=== PATIENT | female | born 1970 | race Caucasian/White ===

== ENCOUNTER → 2017-10-27 14:32 | Outpatient (REF) | payer SELFPAY | LOC: OM 14:32 | PROVIDERS: PCP Family Medicine; Visit Provider Nurse Practitioner Family | DX: Z02.79 Encounter for issue of other medical certificate (principal) ==

== ENCOUNTER 2019-10-04 02:58 | Outpatient (CLI) | payer BC, SELFPAY ==
[2019-10-04 13:26] LABS: Abs Immature Grans 0.07 10^3/uL (0.0-0.06); HCT 40.3 % (36.0-46.0); HGB 13.3 g/dL (11.2-15.7); MCH 31.3 pg (27.0-33.0); MCV 94.8 fL (80-95); MPV 9.7 fL (8.0-11.0); Platelet Count 206 10^3/uL (130-400); RBC 4.25 10^6/uL (3.93-5.22); RDW 14.2 % (11.7-14.6); RDW-SD 49.4 fL
[2019-10-04 14:12] LABS: Absolute Neutrophil Count 1.97 10^3/uL (1.2-6.7); WBC 32.88 10^3/uL (4.4-10.8)
[2019-10-04 14:13] LABS: Absolute Lymphocyte Count 30.91 10^3/uL (1.2-3.4); Atypical Lymphocytes % 11
[2019-10-04 14:14] LABS: Diff Comment Manual Differential; RBC Morphology Normal
[2019-10-04 14:17] LABS: Bilirubin Negative (Negative); Blood Trace-intact (Negative); Clarity Clear (Clear); Glucose Negative (Negative); Ketones Negative (Negative); Leukocyte Esterase Negative (Negative); Nitrite Negative (Negative); Specific Gravity >= 1.030 (1.005-1.025); Urobilinogen 0.2 EU/dL (Up TO 0.2); pH 5.5 (5-8)
[2019-10-04 14:24] LABS: ALT 48 U/L (14-59); AST 72 U/L (15-37); Albumin 4.4 g/dL (3.4-5.0); Alkaline Phosphatase 72 U/L (46-116); Anion Gap 9.9 mmol/L (3-11); BUN 33 mg/dL (7-18); Bilirubin, Total 0.7 mg/dL (0.2-1.0); CO2 27.1 mmol/L (21.0-32.0); Calcium 9.6 mg/dL (8.5-10.1); Chloride 103 mmol/L (98-107); Glucose 89 mg/dL (74-106); Potassium 4.1 mmol/L (3.5-5.1); Sodium 140 mmol/L (136-145); TSH (W/Ref FT4) 1.99 uIU/mL (0.36-3.74); Total Protein 6.7 g/dL (6.4-8.2)
[2019-10-04 14:25] LABS: C-Reactive Protein < 0.05 mg/dL (0.0-0.3)
[2019-10-04 14:36] LABS: Bacteria Rare HPF (Negative); C & S Indicated? No; Casts Negative LPF (Negative); Crystals Negative HPF (Negative); Epithelial Cells Many HPF (Negative); Mucus Negative (Negative); RBC 0-2 HPF (0-2); WBC 0-2 HPF (0-5)
== END 2019-10-04 03:18 ==
PROVIDERS: PCP Family Medicine; Visit Provider Family Medicine
DX: R31.9 Hematuria, unspecified (principal); M94.8X9 Other specified disorders of cartilage, unspecified sites; N95.0 Postmenopausal bleeding
CPT/HCPCS: 36415; 80053; 81003; 81015; 84443; 85025; 86140

== ENCOUNTER 2019-10-11 01:20 | Outpatient (CLI) | payer BC, SELFPAY ==
--- NOTE | 2019-10-11 07:30 | DI.US_ITS ---
APPROVED REPORT EXAM: Comprehensive 2D, Doppler, and color-flow Echocardiogram Patient Location: Out-Patient Efficiency Manager: Jing Ochoa RDCS (AE) Indications: Miurmur Other Information Study Quality: Good Conclusion Left Ventricle : The left ventricle is normal size. The left ventricular systolic function is normal. The left ventricular ejection fraction is within the normal range. There is normal left ventricular wall thickness. There is normal LV segmental wall motion. LVEF is 60%. Right Ventricle : The right ventricle is normal size. The right ventricular systolic function is norm al. Atria : The left atrium size is normal. The right atrium size is normal. Valves: There are no hemodynamically significant valvular lesions. Great Vessels : The aortic root is normal in size. The ascending aorta is normal in size. Aortic arch is normal in caliber. IVC is normal in size and collapses >50% with inspiration. Please see remainder of study for further details. There is no prior study available for comparison. Wall motion Left Ventricle The left ventricle is normal size. The left ventricular systolic function is normal. The left ventric ular ejection fraction is within the normal range. There is normal left ventricular wall thickness. T here is normal LV segmental wall motion. There is no ventricular septal defect visualized. LVEF is 60 %. Right Ventricle The right ventricle is normal size. The right ventricular systolic function is normal. Atria The left atrium size is normal. The right atrium size is normal. The interatrial septum is intact wit h no evidence for an atrial septal defect. Aortic Valve Aortic valve is trileaflet. There is no aortic valvular stenosis. No aortic regurgitation is present. Mitral Valve The mitral valve is normal in structure. No evidence of mitral valve stenosis. Trace mitral regurgita tion. Tricuspid Valve The tricuspid valve is normal in structure. There is no tricuspid valve stenosis. Trace tricuspid reg urgitation. Pulmonic Valve The pulmonary valve is normal in structure. There is no pulmonic valvular stenosis. Trace pulmonic re gurgitation. Great Vessels The aortic root is normal in size. The ascending aorta is normal in size. Aortic arch is normal in ca liber. IVC is normal in size and collapses >50% with inspiration. Pericardium There is no pericardial effusion. 2D Dimensions IVSD d PLAX 0.80 cm F: 0.6-1.0 LV Vol A2C d MOD 110.8 mL LVPW d PLAX 0.80 cm F: 0.6 - 1.0 LV Vol A4C d MOD 116.6 mL LVID d PLAX 4.80 cm F: 3.8 - 5.2 LA vol/ BSA A2C s A-L 36.2 mL/m2 LVDs 3.00 cm F: 2.2 - 3.5 LA vol/ BSA A4C s A-L 31.3 mL/m2 Ao Root d 2.34 cm F: 2.7 - 3.3 LA Vol/ BSA Biplane s A-L 34.0 mL/m2 RA Area A4C 16.38 cm2 LA Area A4C s MOD 16.99 cm2 RA Vol/ BSA A4C s A-L 33.9 mL/m2 LA Area A2C s MOD 18.47 cm2 Ao Asc Diam d 2.81 cm F: 2.3 - 3.1 LV EF A4C MOD 61.5 % LV EF Teichholz 66.4 % LV EF A2C MOD 61.3 % LVEF (Green's) 61.20 % F: 54 - 74 LV EF Biplane MOD 61.2 % LV Volume 94.50 mL F: 46 - 106 SV 70.22 mL LV Volume Index 61.36 mL/m2 F: 29 - 61 SV Index 45.44 mL/m2 LV Vol Biplane MOD 114.7 mL FS 36.65 % M-Mode TAPSE 2.98 cm (M/F) >1.7 LV Diastology E/A Ratio 1.0 MV E Vmax 0.68 (0.4-1.3 m/s) MV A Vmax 0.65 (0.4-1.3 m/s) MV E/A Ratio 0.98 Aortic Valve LVOT Area 2.72 cm2 AoV Area Vmax 1.98 cm2 LVOT Vmax 1.26 m/s AoV Area/ BSA (Vmax) 1.28 cm2/m2 LVOT Mean Lavon. 0.74 m/s RADHA Mean Lavon. 1.77 cm2 LVOT Peak Grad 6.4 mmHg RADHA Mean Lavon. Index 1.15 cm2/m2 LVOT Mean Grad 2.7 mmHg LVOT VTI 0.280 m LVOT Diam s 1.85 cm AoV Vmax 1.73 m/s Velocity Ratio 0.72 AoV Mean Lavon. 1.14 m/s AoV Peak Grad 11.9 mmHg LVOT SV 76.17 mL AoV Mean Grad 5.8 mmHg AoV VTI 0.368 m AoV Area VTI 2.07 cm2 AoV Area/ BSA (VTI) 1.34 cm/m2 Mitral Valve MV DT 182 (160-240 msec) MV PHT 53 msec MV Area PHT 4.16 cm2 Pulmonary Valve PV Vmax 1.99 (0.5-1.5 m/s) RVOT Peak Gr. 2.70 mmHg PV Peak Grad 15.8 mmHg RVOT Mean Gr. 1.40 mmHg PV Mean Grad 8.1 mmHg RVOT VTI 0.215 m PV VTI 0.456 m RVOT Vmax 0.82 m/s Tricuspid Valve TR Peak Grad 18.5 mmHg TR Vmax 2.15 m/s RA Pressure 3.00 mmHg RVSP (TR) 21.5 mmHg
== END 2019-10-11 01:40 ==
PROVIDERS: PCP Family Medicine; Visit Provider Family Medicine
DX: R01.1 Cardiac murmur, unspecified (principal)
CPT/HCPCS: 93306

== ENCOUNTER 2019-10-15 01:51 | Outpatient (CLI) | payer BC, SELFPAY ==
--- NOTE | 2019-10-15 08:00 | DI.US_ITS ---
EXAM: US PELVIS TRANSVAGINAL CLINICAL HISTORY: POSTMENOPAUSAL BLEEDING,N95.0. TECHNIQUE: Transabdominal and transvaginal pelvic ultrasound was performed using standard protocol. COMPARISON: No exams were available for comparison FINDINGS: KIDNEYS: Kidneys are symmetric in size. No evidence of renal calculi. No evidence of hydronephrosis. No renal mass or cyst identified. UTERUS: Position: Anteverted. Size: 7.7 long by 3.5 AP by 5.6 transverse cm Endometrium: 0.2 cm. Normal for patient's menstrual status. Myometrium: Unremarkable. Cervix: Unremarkable. OVARIES: Right: 3.2 x 1.5 x 1.9 cm Cyst or mass: None. Left: 3.0 x 2.2 x 2.4 cm Cyst or mass: Simple avascular 2 x 1.8 x 2.1 cm cyst. DOPPLER: Color: Symmetric and uniform flow to both ovaries. No hyperemia. CUL-DE-SAC: Free fluid: None. Other: None. IMPRESSION: 1. Normal sonographic appearance of the kidneys. 2. Normal-appearing uterus with endometrial stripe within normal limits. 3. 2.1 cm simple left ovarian cyst. DATA REPOSITORY:
== END 2019-10-15 02:11 ==
PROVIDERS: PCP Family Medicine; Visit Provider Obstetrics & Gynecology
DX: N95.0 Postmenopausal bleeding (principal); N83.292 Other ovarian cyst, left side
CPT/HCPCS: 76830; 76856

== ENCOUNTER 2019-10-15 02:40 | Outpatient (CLI) | payer BC, SELFPAY ==
[2019-10-15 13:50] LABS: TSH 2.49 uIU/mL (0.36-3.74)
[2019-10-15 22:10] LABS: FSH 57.3 mIU/mL (See Note); Prolactin 5.7 ng/mL (See Table)
== END 2019-10-15 03:00 ==
PROVIDERS: PCP Family Medicine; Visit Provider Obstetrics & Gynecology
DX: N95.0 Postmenopausal bleeding (principal); N83.292 Other ovarian cyst, left side
CPT/HCPCS: 36415; 83001; 84146; 84443

== ENCOUNTER 2019-10-30 00:29 | Outpatient (CLI) | payer BC, SELFPAY ==
--- NOTE | 2019-10-30 07:00 | DI.MAMMO_ITS ---
EXAM: MAMMO SCREENING CLINICAL HISTORY: screening,Z12.39 TECHNIQUE: Mammograms were interpreted according to the usual protocol including computer analysis w [facility] CAD system, tomosynthesis and C-view imaging. COMPARISON: FINDINGS: The breasts are heterogeneously dense. No dominant mass or clumped microcalcification is identified in either breast. The current examination is compared with previous examinations including October 24 and there has been no gross interval change in appearance in comparison with the prior studies. IMPRESSION: No specific evidence of malignancy at this time. Routine screening examinations are suggested at yea rly intervals in this age group according to the ACS ACR guidelines. BI-RADS Category 1 - Negative Breast Density - Category C - Heterogeneously dense
== END 2019-10-30 00:49 ==
PROVIDERS: PCP Family Medicine; Visit Provider Obstetrics & Gynecology
DX: Z12.31 Encounter for screening mammogram for malignant neoplasm of breast (principal); R92.2 Inconclusive mammogram
CPT/HCPCS: 77063; 77067

== ENCOUNTER 2020-01-25 04:32 | Outpatient (CLI) | payer BC, SELFPAY ==
--- NOTE | 2020-01-25 | DI.US_ITS ---
EXAM: US ABDOMEN CLINICAL HISTORY: ANEMIA,D64.9,CLL,C91.10 TECHNIQUE: Ultrasound abdomen performed using standard protocol. COMPARISON: No exams were available for comparison FINDINGS: ABDOMINAL AORTA AND IVC: Visualized portions normal caliber. PANCREAS: Normal where visualized. LIVER: Normal. Hepatopedal flow in the Portal Vein. The liver measures 16.5 cm in length. GALLBLADDER: No evidence of cholelithiasis. No evidence of wall thickening. No pericholecystic fluid identified. BILIARY SYSTEM: Common bile duct measures < 7 mm. No intrahepatic biliary ductal dilation. ZIEGLER'S SIGN: Negative. KIDNEYS: Kidneys are symmetric in size. No evidence of renal calculi. No evidence of hydronephrosis. No renal mass or cyst identified. SPLEEN: The spleen measures 14 cm in length. ASCITES: None seen. IMPRESSION: Mild splenomegaly. DATA REPOSITORY:
== END 2020-01-25 04:52 ==
PROVIDERS: PCP Family Medicine; Visit Provider Internal Medicine Hematology
DX: R16.1 Splenomegaly, not elsewhere classified (principal); C91.10 Chronic lymphocytic leukemia of B-cell type not having achieved remission; D64.9 Anemia, unspecified
CPT/HCPCS: 76700

== ENCOUNTER 2020-02-13 03:41 | Outpatient (CLI) | payer BC, SELFPAY ==
[2020-02-13 13:31] LABS: HCT 36.2 % (36.0-46.0); HGB 11.4 g/dL (11.2-15.7); MCH 31.2 pg (27.0-33.0); MCHC 31.5 % (32.0-36.0); MCV 99.2 fL (80-95); MPV 8.9 fL (8.0-11.0); Platelet Count 133 10^3/uL (130-400); RBC 3.65 10^6/uL (3.93-5.22); RDW 15.8 % (11.7-14.6); RDW-SD 56.3 fL
[2020-02-13 13:59] LABS: Absolute Neutrophil Count 1.92 10^3/uL (1.2-6.7); WBC 38.44 10^3/uL (4.4-10.8)
[2020-02-13 14:00] LABS: Absolute Lymphocyte Count 35.36 10^3/uL (1.2-3.4); Absolute Monocyte Count 1.15 10^3/uL (0.1-0.8)
[2020-02-13 14:01] LABS: Diff Comment Manual Differential; Nucleated RBC 1 %; RBC Morphology Normal
[2020-02-13 14:33] LABS: ALT 54 U/L (14-59); AST 53 U/L (15-37); Albumin 4.3 g/dL (3.4-5.0); Alkaline Phosphatase 81 U/L (46-116); BUN 28 mg/dL (7-18); Bilirubin, Total 0.6 mg/dL (0.2-1.0); CREATININE 0.68 mg/dL (0.55-1.02); Calcium 9.3 mg/dL (8.5-10.1); Chloride 101 mmol/L (98-107); Glucose 82 mg/dL (74-106); Potassium 3.7 mmol/L (3.5-5.1); Sodium 139 mmol/L (136-145); Total Protein 6.5 g/dL (6.4-8.2)
[2020-02-13 14:55] LABS: ALT 55 U/L (14-59); AST 54 U/L (15-37); Albumin 4.2 g/dL (3.4-5.0); Alkaline Phosphatase 81 U/L (46-116); Bilirubin, Total 0.6 mg/dL (0.2-1.0); Folate 19.8 ng/mL (8.6-20.0); Total Protein 6.5 g/dL (6.4-8.2); Vitamin B12 1272 pg/mL (193-986)
[2020-02-13 15:07] LABS: Bilirubin, Direct 0.18 mg/dL (0.00-0.20)
== END 2020-02-13 04:01 ==
PROVIDERS: PCP Family Medicine; Visit Provider Internal Medicine Hematology
DX: C91.10 Chronic lymphocytic leukemia of B-cell type not having achieved remission (principal); D64.9 Anemia, unspecified; R79.89 Other specified abnormal findings of blood chemistry
CPT/HCPCS: 36415; 80053; 80076; 82607; 82746; 85025

== ENCOUNTER 2020-05-06 03:03 | Outpatient (CLI) | payer BC, SELFPAY ==
[2020-05-06 08:47] LABS: HCT 34.4 % (36.0-46.0); HGB 10.5 g/dL (11.2-15.7); MCH 29.8 pg (27.0-33.0); MCHC 30.5 % (32.0-36.0); MCV 97.7 fL (80-95); MPV 8.8 fL (8.0-11.0); Nucleated RBC 0 %; Platelet Count 105 10^3/uL (130-400); RBC 3.52 10^6/uL (3.93-5.22); RDW 17.6 % (11.7-14.6); RDW-SD 62.3 fL
[2020-05-06 09:20] LABS: WBC 34.95 10^3/uL (4.4-10.8)
[2020-05-06 09:25] LABS: Absolute Lymphocyte Count 30.76 10^3/uL (1.2-3.4); Absolute Neutrophil Count 3.15 10^3/uL (1.2-6.7)
[2020-05-06 09:26] LABS: Absolute Eosinophil Count 0.35 10^3/uL (0.0-0.7); Diff Comment Manual Differential
[2020-05-06 09:27] LABS: RBC Morphology Normal
== END 2020-05-06 03:04 | disposition home or self-care (01) ==
PROVIDERS: PCP Family Medicine; Visit Provider Internal Medicine Hematology
DX: C91.11 Chronic lymphocytic leukemia of B-cell type in remission (principal)
CPT/HCPCS: 36415; 85025

== ENCOUNTER 2020-06-16 04:23 | Outpatient (CLI) | payer BC, SELFPAY ==
[2020-06-16 09:15] LABS: HCT 29.7 % (36.0-46.0); HGB 9.3 g/dL (11.2-15.7); MCH 30.3 pg (27.0-33.0); MCHC 31.3 % (32.0-36.0); MCV 96.7 fL (80-95); MPV 9.2 fL (8.0-11.0); Platelet Count 113 10^3/uL (130-400); RBC 3.07 10^6/uL (3.93-5.22); RDW 17.8 % (11.7-14.6); RDW-SD 61.6 fL
[2020-06-16 09:29] LABS: Absolute Lymphocyte Count 22.79 10^3/uL (1.2-3.4); Absolute Monocyte Count 1.55 10^3/uL (0.1-0.8); Absolute Neutrophil Count 1.55 10^3/uL (1.2-6.7)
[2020-06-16 09:35] LABS: Anisocytosis 2+; Diff Comment Manual Differential
== END 2020-06-16 04:24 | disposition home or self-care (01) ==
LOC: LBO 04:23
PROVIDERS: PCP Family Medicine; Visit Provider Internal Medicine Hematology
DX: C91.10 Chronic lymphocytic leukemia of B-cell type not having achieved remission (principal)
CPT/HCPCS: 36415; 85025

== ENCOUNTER 2020-08-08 01:08 | Outpatient (CLI) | payer BC, SELFPAY ==
[2020-08-08 11:36] LABS: Abs Immature Grans 0.15 10^3/uL (0.0-0.06); Absolute Neutrophil Count 2.11 10^3/uL (1.2-6.7); Basophils % 0.1; Eosinophils % 0.2; HCT 30.6 % (36.0-46.0); HGB 9.4 g/dL (11.2-15.7); Immature Grans % 0.3; MCH 29.1 pg (27.0-33.0); MCHC 30.7 % (32.0-36.0); MCV 94.7 fL (80-95); Monocytes % 12.3; Neutrophils % 4.3; Nucleated RBC 0 %; Platelet Count 129 10^3/uL (130-400); RBC 3.23 10^6/uL (3.93-5.22); RDW 18.3 % (11.7-14.6); RDW-SD 62.4 fL
[2020-08-08 12:01] LABS: Absolute Basophil Count 0.05 10^3/uL (0.0-0.2); Absolute Monocyte Count 6.03 10^3/uL (0.1-0.8)
[2020-08-08 12:04] LABS: Diff Comment Agrees w/ Instrument
[2020-08-08 12:05] LABS: Basophilic Stippling Present; Hypochromasia 2+; Polychromasia Present
[2020-08-08 12:06] LABS: Lymphocytes % 82.8
[2020-08-08 12:08] LABS: WBC 49.03 10^3/uL (4.4-10.8)
[2020-08-08 12:20] LABS: ALT 63 U/L (14-59); AST 58 U/L (15-37); Albumin 4.1 g/dL (3.4-5.0); Alkaline Phosphatase 94 U/L (46-116); Anion Gap 9.2 mmol/L (3-11); BUN 37 mg/dL (7-18); Bilirubin, Total 0.7 mg/dL (0.2-1.0); CO2 24.8 mmol/L (21.0-32.0); CREATININE 0.7 mg/dL (0.55-1.02); Calcium 8.9 mg/dL (8.5-10.1); Chloride 106 mmol/L (98-107); Glucose 95 mg/dL (74-106); PHOSPHORUS 4.7 mg/dL (2.6-4.7); Potassium 4.1 mmol/L (3.5-5.1); Sodium 140 mmol/L (136-145); Total Protein 6.7 g/dL (6.4-8.2); Uric Acid 3.2 mg/dL (2.6-6.0)
== END 2020-08-08 01:09 | disposition home or self-care (01) ==
LOC: LBO 01:08
PROVIDERS: PCP Nurse Practitioner Family; Visit Provider Internal Medicine Hematology
DX: C91.10 Chronic lymphocytic leukemia of B-cell type not having achieved remission (principal)
CPT/HCPCS: 36415; 80053; 84100; 84550; 85025

== ENCOUNTER 2020-08-22 02:54 | Outpatient (CLI) | payer BC, SELFPAY ==
[2020-08-22 08:43] LABS: Abs Immature Grans 0.07 10^3/uL (0.0-0.06); Absolute Basophil Count 0.06 10^3/uL (0.0-0.2); Basophils % 0.2; Eosinophils % 0.2; HCT 33.4 % (36.0-46.0); Immature Grans % 0.2; Lymphocytes % 85.6; MCH 29.9 pg (27.0-33.0); MCHC 29.9 % (32.0-36.0); MCV 99.7 fL (80-95); MPV 9.7 fL (8.0-11.0); Monocytes % 8.8; Nucleated RBC 0 %; Platelet Count 130 10^3/uL (130-400); RBC 3.35 10^6/uL (3.93-5.22); RDW 19.5 % (11.7-14.6); RDW-SD 70.4 fL
[2020-08-22 08:53] LABS: ALT 35 U/L (14-59); AST 31 U/L (15-37); Albumin 3.9 g/dL (3.4-5.0); Alkaline Phosphatase 97 U/L (46-116); Anion Gap 8.2 mmol/L (3-11); BUN 37 mg/dL (7-18); Bilirubin, Total 0.6 mg/dL (0.2-1.0); CO2 25.8 mmol/L (21.0-32.0); CREATININE 0.6 mg/dL (0.55-1.02); Calcium 8.8 mg/dL (8.5-10.1); Chloride 106 mmol/L (98-107); Glucose 90 mg/dL (74-106); PHOSPHORUS 4.4 mg/dL (2.6-4.7); Potassium 4.4 mmol/L (3.5-5.1); Sodium 140 mmol/L (136-145); Total Protein 6.6 g/dL (6.4-8.2); Uric Acid 1.9 mg/dL (2.6-6.0)
[2020-08-22 09:12] LABS: Absolute Eosinophil Count 0.06 10^3/uL (0.0-0.7); Absolute Lymphocyte Count 26.35 10^3/uL (1.2-3.4); Absolute Monocyte Count 2.71 10^3/uL (0.1-0.8); Absolute Neutrophil Count 1.54 10^3/uL (1.2-6.7)
[2020-08-22 09:16] LABS: WBC 30.78 10^3/uL (4.4-10.8)
[2020-08-22 09:17] LABS: Diff Comment Agrees w/ Instrument; RBC Morphology Normal
== END 2020-08-22 02:55 | disposition home or self-care (01) ==
LOC: LBO 02:54
PROVIDERS: PCP Nurse Practitioner Family; Visit Provider Internal Medicine Hematology
DX: C91.10 Chronic lymphocytic leukemia of B-cell type not having achieved remission (principal)
CPT/HCPCS: 36415; 80053; 84100; 84550; 85025

== ENCOUNTER 2020-09-19 03:24 | Outpatient (CLI) | payer BC, SELFPAY ==
[2020-09-19 08:56] LABS: HCT 40.7 % (36.0-46.0); HGB 12.5 g/dL (11.2-15.7); MCH 29.8 pg (27.0-33.0); MCHC 30.7 % (32.0-36.0); MCV 96.9 fL (80-95); MPV 10.9 fL (8.0-11.0); Platelet Count 187 10^3/uL (130-400); RDW 16.8 % (11.7-14.6); RDW-SD 60.4 fL; WBC 21.44 10^3/uL (4.4-10.8)
[2020-09-19 09:17] LABS: ALT 28 U/L (14-59); AST 28 U/L (15-37); Albumin 4.2 g/dL (3.4-5.0); Alkaline Phosphatase 95 U/L (46-116); Anion Gap 7.2 mmol/L (3-11); BUN 39 mg/dL (7-18); Bilirubin, Total 0.5 mg/dL (0.2-1.0); CO2 25.8 mmol/L (21.0-32.0); CREATININE 0.7 mg/dL (0.55-1.02); Calcium 8.8 mg/dL (8.5-10.1); Chloride 108 mmol/L (98-107); Glucose 99 mg/dL (74-106); PHOSPHORUS 4.7 mg/dL (2.6-4.7); Potassium 4.3 mmol/L (3.5-5.1); Sodium 141 mmol/L (136-145); Total Protein 7.2 g/dL (6.4-8.2); Uric Acid 4.7 mg/dL (2.6-6.0)
[2020-09-19 09:21] LABS: Absolute Lymphocyte Count 19.51 10^3/uL (1.2-3.4); Absolute Monocyte Count 0.43 10^3/uL (0.1-0.8); Atypical Lymphocytes % 52
[2020-09-19 09:22] LABS: Anisocytosis 1+; Diff Comment Manual Differential; Hypochromasia 1+
[2020-09-22 09:06] LABS: IgA 81 mg/dL (85-499); IgG 725 mg/dL (610-1,616); IgM 53 mg/dL (35-242)
== END 2020-09-19 03:25 | disposition home or self-care (01) ==
LOC: LBO 03:24
PROVIDERS: PCP Nurse Practitioner Family; Visit Provider Internal Medicine Hematology
DX: C91.10 Chronic lymphocytic leukemia of B-cell type not having achieved remission (principal); D80.1 Nonfamilial hypogammaglobulinemia
CPT/HCPCS: 36415; 80053; 82784; 84100; 84550; 85025

== ENCOUNTER 2020-10-10 10:12 | Day surgery (SDC) | payer BC, SELFPAY ==
--- NOTE | 2020-10-09 14:20 | W.ANESPRE ---
General Info Date of Service Date Performed: 10/10/20 Height: 5 ft 3 in Weight: 52.163 kg Body Mass Index (BMI): 20.3 Surgical Procedure: Operation Date: 10/10/20 10:50 Proposed Procedures Side Surgeon florin Gaines, DO Meds Allergies and Home Medications Allergies Allergy/AdvReac Type Severity Reaction Status Date / Time febuxostat Allergy Intermediate Skin Rash Unverified 10/09/20 12:48 Home Medication Medication Instructions Recorded acetaminophen 500 mg tablet 1,000 mg PO Q6H PRN tab 09/26/20 acyclovir 400 mg tablet 400 mg PO BID 09/26/20 bisacodyl 5 mg tablet,delayed 5 mg PO ONCE #4 tab 09/26/20 release cholecalciferol (vitamin D3) 25 25 mcg PO DAILY 09/26/20 mcg (1,000 unit) capsule ibrutinib 420 mg tablet 420 mg PO DAILY 09/26/20 polyethylene glycol 3350 17 238 g PO ONCE #238 g 09/26/20 gram/dose oral powder Current Visit Medications: Current Medications Generic Name Dose Route Start Last Admin Trade Name Freq PRN Reason Stop Dose Admin Ringer's Solution 1,000 mls @ 80 mls/hr 10/10/20 06:00 IV 11/08/20 23:59 INFUSION LEONIDAS IV Miscellaneous Supplies 1 each 10/10/20 06:00 Iv Access IV 11/08/20 23:59 DIRECTED LEONIDAS Sodium Chloride 0 ml 10/10/20 06:00 Normal Saline Flush 10 Ml Syr IV 11/08/20 23:59 PRN PRN Sodium Chloride 0 ml 10/10/20 06:00 Normal Saline 10 Ml Vial IJ 11/08/20 23:59 DIRECTED PRN Sterile Water 0 ml 10/10/20 06:00 Water,Injection,Sterile 10 Ml Vial IJ 11/08/20 23:59 DIRECTED PRN PFSH Active Problems Active Problems: Problem Status Onset Code Herpes zoster B02.9 CLL (chronic lymphocytic leukemia) C91.10 Postmenopausal Bleeding N95.0 Postmenopausal Bleeding N95.0 Lymphocytosis D72.820 Hematuria R31.9 Systolic ejection murmur R01.1 Medical History Medical History CLL (chronic lymphocytic leukemia) Herpes zoster Postmenopausal Bleeding Surgical History Surgical History (Updated 10/10/20 @ 10:46 by Jd Madsen) Hx of colonoscopy Hx of foot surgery right foot Tobacco Smoking/Tobacco Use Status: Never Passive smoking exposure: Yes Alcohol Alcohol Intake: never Substance Use Substance use: Never Substance use type: does not use Vital Signs and Lab Results Lab Results Result Diagrams: 10/10/20 10:48 Blood Type / Crossmatch: No Data to Display Complete Blood Count: White Blood Count 7.75 10^3/uL (4.4-10.8) 10/10/20 10:48 10/10/20 Red Blood Count 4.57 10^6/uL (3.93-5.22) 10/10/20 10:48 10/10/20 Hemoglobin 13.4 g/dL (11.2-15.7) 10/10/20 10:48 10/10/20 Hematocrit 42.3 % (36.0-46.0) 10/10/20 10:48 10/10/20 Platelet Count 151 10^3/uL (130-400) 10/10/20 10:48 10/10/20 Complete Metabolic Panel: Sodium Level 141 mmol/L (136-145) 09/19/20 08:50 09/19/20 Potassium Level 4.3 mmol/L (3.5-5.1) 09/19/20 08:50 09/19/20 Chloride Level 108 mmol/L (98-107) H 09/19/20 08:50 09/19/20 Carbon Dioxide Level 25.8 mmol/L (21.0-32.0) 09/19/20 08:50 09/19/20 Blood Urea Nitrogen 39 mg/dL (7-18) H 09/19/20 08:50 09/19/20 Creatinine 0.7 mg/dL (0.55-1.02) 09/19/20 08:50 09/19/20 Estimated GFR/1.73 m2 >= 60.00 (mL/min/1.73m2) 09/19/20 08:50 09/19/20 Calcium Level 8.8 mg/dL (8.5-10.1) 09/19/20 08:50 09/19/20 Albumin 4.2 g/dL (3.4-5.0) 09/19/20 08:50 09/19/20 Glucose Level 99 mg/dL (74-106) 09/19/20 08:50 09/19/20 Liver Function Panel: Alanine Aminotransferase (ALT/SGPT) 28 U/L (14-59) 09/19/20 08:50 09/19/20 Aspartate Amino Transf (AST/SGOT) 28 U/L (15-37) 09/19/20 08:50 09/19/20 Coagulation Panel: INR International Normalized Ratio 1.0 (0.9-1.1) 10/10/20 10:48 10/10/20 Prothrombin Time 9.9 sec (9.3-11.0) 10/10/20 10:48 10/10/20 Cardiac Panel: No Data to Display Arterial Blood Gas: No Data to Display Venous Blood Gas: No Data to Display Pancreas Panel: No Data to Display Thyroid Panel: No Data to Display Infectious Disease: No Data to Display Blood Cultures: No Data to Display Toxicology Panel: No Data to Display Panel: No Data to Display Imaging and Studies Imaging and Studies Echocardiogram Summary: 10/24: LVEF 60%, no hemodynamically sig valve lesions. Anesthesia Assessment and Plan Anesthesia History Personal History: No History of Anesthesia Complications Family History: No Family History of Anesthesia Complications Exercise Tolerance Exercise Tolerance: Metabolic Equivalents>4 Pertinent Negatives Pertinent Negatives: No Symptoms of GERD, No Major Cardiovascular Symptoms or Complaints and No Major Pulmonary Symptoms or Complaints Cardiac & Pulmonary Exam Cardiac Exam: Heart Murmur Present Pulmonary Exam: Clear Bilateral Breath Sounds Airway Exam Known Difficult Airway: No Mallampati Class: 1 Mouth Opening: Normal (> 3cm) Thyromental Distance: Greater than 3 cm Neck Range of Motion: Full ROM Neck Circumference: Normal Teeth Condition: Normal Dentition ASA Classification ASA Score: ASA 3 Emergency Case?: No NPO Status NPO Status: NPO Clears >2 hours, Solids >8 hours Status Status: Negative HCG Anesthesia Plan Resuscitation Status: Full Code Anesthesia Technique: General Anesthesia Airway Planned: Natural Airway Monitors Used: Standard Monitors Preoperative Comments:: 50 yo female for screening colo. sig pmhx CLL (ibrutinib).
[2020-10-10 10:47] VITALS: BP 114/66; PULSE 55; RESP 16; TEMP 36.5; O2SAT 100
[2020-10-10 11:00] LABS: HCT 42.3 % (36.0-46.0); HGB 13.4 g/dL (11.2-15.7); MCH 29.3 pg (27.0-33.0); MCHC 31.7 % (32.0-36.0); MCV 92.6 fL (80-95); MPV 9.3 fL (8.0-11.0); Nucleated RBC 0 %; Platelet Count 151 10^3/uL (130-400); RBC 4.57 10^6/uL (3.93-5.22); RDW 15.2 % (11.7-14.6); WBC 7.75 10^3/uL (4.4-10.8)
[2020-10-10 11:10] LABS: Prothrombin Time 9.9 sec (9.3-11.0)
[2020-10-10 11:16] LABS: Absolute Neutrophil Count 2.87 10^3/uL (1.2-6.7)
[2020-10-10 11:17] LABS: Absolute Basophil Count 0.08 10^3/uL (0.0-0.2); Absolute Lymphocyte Count 4.11 10^3/uL (1.2-3.4); Atypical Lymphocytes % 15; Diff Comment Manual Differential; RBC Morphology Normal
[2020-10-10 11:31] VITALS: BMI 20.3
[2020-10-10] MEDS: Lactated Ringers 1,000 ML 80 ML IV (11:32)
--- NOTE | 2020-10-10 12:51 | PDOC.DSDIS_ITS ---
Discharge Plan Disposition Patient Disposition: HOME Condition: Good Discharge Details Reason For Visit: colon scope Attending Provider: Lexi Gaines Primary Care Provider: Alma Ayala Home Meds and New Rx's Prescriptions: Continued acetaminophen [Tylenol Extra Strength] 500 mg tablet 1,000 mg PO Q6H PRNRF: 0 acyclovir 400 mg tablet 400 mg PO BID RF: 0 Imbruvica 420 mg tablet 420 mg PO DAILY RF: 0 cholecalciferol (vitamin D3) 25 mcg (1,000 unit) capsule 25 mcg PO DAILY RF: 0 Discontinued bisacodyl [Dulcolax (bisacodyl)] 5 mg tablet,delayed release (DR/EC) 5 mg PO ONCE Qty: 4 RF: 0 polyethylene glycol 3350 17 gram/dose powder 238 g PO ONCE Qty: 238 RF: 0 Discharge Instructions Additional Instructions: DSU Colonoscopy Post- Op Instructions Instructions for Everyone who is given Anesthesia: For your safety, please do the following for the next twenty-four (24) hours: *Do Not operate a motor vehicle (car, truck, motorcycle, etc.) *Do Not drink alcoholic beverages or use any recreational drugs for the first 24 hours or while taking pain medications. The medications in your body may have a reaction that can be dangerous. *Do Not make any important decisions or sign any important papers. Findings: Normal Follow up:Repeat in 10 yrs time Can restart Imbruvica in am 1. No lifting over 20 pounds or strenuous activity for the first 24 hours after your procedure. After 24 hours there are no restrictions on your activity but you may feel fatigued for a few days. 2. After you arrive home you may have a light meal and return to your normal diet as you can tolerate it without feeling sick to your stomach. 3. You may have a bloated, gaseous feeling in your belly (abdomen) after a colonoscopy. Passing gas and belching will help. Walking or lying down on your left side with your knees flexed may relieve the discomfort. Call the office at [phone] (Office) or [phone] (Hospital) right away if you notice any of the following: a.Vomiting of blood or ?coffee ground stools?. b.Rectal bleeding 1Tbsp, blood clots or continuous bleeding. c.Severe belly (abdominal) pain. d.A hard distended belly (abdomen) and an inability to pass gas. 4. Please don?t expect to have a normal BM (bowel movement) for 2-3 days after your procedure. 5. If there are questions regarding the findings of your procedure, please contact your doctor 6. If you are unable to contact your doctor with a problem, contact the hospital at [phone]. 7. Continue all your regular medications unless directed otherwise. I understand the above instructions and have no questions. Signature of Patient or Adult Escort Name of Responsible Adult Escort Signature of Nurse Date/Time Activity:: see above Diet:: see above Discharge Orders Discharge Orders: Discharge Order (Routine); Ordered 10/09/20 Ordered By: Lexi Gaines DS: Diagnosis Discharge Diagnosis (1) Colon cancer screening: Status: Acute
[2020-10-10 12:52] VITALS: BP 96/57; PULSE 58; RESP 16; TEMP 36.4; O2SAT 97
--- NOTE | 2020-10-10 12:53 | W.COLOREPORT ---
Date of service: 10/10/20 Time of Service: 12:53 Colonoscopy Report Date of procedure: 10/10/20 Pre-op diagnosis general: colon cancer screening Post-op diagnosis procedure note: other (normal ) Surgeon: Lexi Gaines Anesthesia Type: General:No Airway Estimated blood loss (mL): 0 Pathology: none sent Complications: None Disposition: same day Prep: Miralax/Dulcolax Retraction Time: 7 Procedure Description: After informed consent was obtained the patient was taken to the procedure room and placed in a left decubitous position. Monitors were applied and a time out was done. The patients name, date of , procedure, allergies to medications and metal in their body was reviewed. The patient was then sedated. Once sedated and comfortable a rectal exam was done. External exam was normal. Internal exam revealed a normal sphincter tone and no palpable masses. The scope was then introduced and retrofelexed. No internal hemorrhoids were identified. The scope was then advanced to the without difficulty. The TI and appendiceal orifice were identified. The prep was good. The scope was then slowly retracted over 7 minutes back into the rectum. there are no polyps, AVMs, or diverticula . The mucosa is pink and healthy. The Visualized today tcope was removed and the patient was woken up and taken back to Same day surgery in stable condition. The patient tolerated the procedure well and there were no immediate complications. Follow up: The patient should follow up in 10 years unless they develop changes in bowel habits or other new gastrointestinal complaints.
--- NOTE | 2020-10-10 13:11 | W.ANESPOSTOP ---
Postoperative Evaluation Date, Time and Location Date Performed: 10/10/20 Time Performed: 13:12 Patient Location: Day Surgery Unit Vital Signs Most Recent Imported Vital Signs: Most Recent Vital Signs Temp Pulse Resp BP Pulse Ox 36.4 C L 58 L 16 96/57 L 97 10/10/20 12:52 10/10/20 12:52 10/10/20 12:52 10/10/20 12:52 10/10/20 12:52 Pain Score Most Recent Pain Score: Most Recent Pain Score Pain Level 0 10/10/20 12:52 Assessment Mental Status: Awake (Alert & Oriented to Patient Baseline) Airway and Respiratory Function: Patent airway with normal (patient baseline) respiratory exam Cardiovascular Function: Hemodynamically Stable Hydration Status: Adequately Hydrated Nausea & Vomiting: No Nausea or Vomiting Pain: Pt. Denies Any Pain Peripheral Nerve Block: Patient did not receive a nerve block
[2020-10-10 13:30] VITALS: BP 105/70; PULSE 55; RESP 16; TEMP 35.8; O2SAT 98
== END 2020-10-10 13:53 | disposition home or self-care (01) ==
PROVIDERS: PCP Nurse Practitioner Family; Visit Provider Surgery
PROC: 0DJD8ZZ Inspection of Lower Intestinal Tract, Via Natural or Artificial Opening Endoscopic (ICD-10-PCS; CPT 45378; principal; 2020-10-10 10:45)
DX: Z12.11 Encounter for screening for malignant neoplasm of colon (principal); C91.10 Chronic lymphocytic leukemia of B-cell type not having achieved remission; N95.0 Postmenopausal bleeding; R31.9 Hematuria, unspecified
CPT/HCPCS: 45378; 36415; 81025; 85025; 85610; J2001

== ENCOUNTER 2021-03-25 02:08 | Outpatient (CLI) | payer BC, SELFPAY ==
[2021-03-25 15:56] LABS: HCT 40.2 % (36.0-46.0); HGB 12.8 g/dL (11.2-15.7); Immature Grans % 0.2; MCH 30.4 pg (27.0-33.0); MCHC 31.8 % (32.0-36.0); MCV 95.5 fL (80-95); MPV 10.3 fL (8.0-11.0); Nucleated RBC 0 %; Platelet Count 149 10^3/uL (130-400); RBC 4.21 10^6/uL (3.93-5.22); RDW 14.3 % (11.7-14.6); RDW-SD 49.9 fL
[2021-03-25 16:12] LABS: Atypical Lymphocytes % 7
[2021-03-25 16:13] LABS: Diff Comment Manual Differential
[2021-03-25 17:53] LABS: ALT 104 U/L (14-59); AST 124 U/L (15-37); Albumin 4.1 g/dL (3.4-5.0); Alkaline Phosphatase 71 U/L (46-116); Anion Gap 6.2 mmol/L (3-11); BUN 26 mg/dL (7-18); Bilirubin, Total 0.6 mg/dL (0.2-1.0); CO2 28.8 mmol/L (21.0-32.0); CREATININE 0.6 mg/dL (0.55-1.02); Calcium 8.9 mg/dL (8.5-10.1); Chloride 105 mmol/L (98-107); Glucose 76 mg/dL (74-106); PHOSPHORUS 4.1 mg/dL (2.6-4.7); Potassium 4.4 mmol/L (3.5-5.1); Sodium 140 mmol/L (136-145); Total Protein 6.4 g/dL (6.4-8.2); Uric Acid 4.2 mg/dL (2.6-6.0)
[2021-04-06 08:26] LABS: Absolute Lymphocyte Count 2.01 10^3/uL (1.2-3.4); Absolute Monocyte Count 0.44 10^3/uL (0.1-0.8)
[2021-04-06 08:27] LABS: Absolute Eosinophil Count 0.05 10^3/uL (0.0-0.7)
== END 2021-03-25 02:09 | disposition home or self-care (01) ==
LOC: LBO 02:09
PROVIDERS: PCP Nurse Practitioner Family; Visit Provider Internal Medicine Hematology
DX: C91.10 Chronic lymphocytic leukemia of B-cell type not having achieved remission (principal)
CPT/HCPCS: 36415; 80053; 84100; 84550; 85025

== ENCOUNTER 2021-04-03 03:50 | Outpatient (RCR) | payer BC, SELFPAY | END 2021-04-06 23:59 | disposition home or self-care (01) | LOC: INF 03:50 | PROVIDERS: PCP Nurse Practitioner Family; Visit Provider Internal Medicine Hematology | DX: C91.10 Chronic lymphocytic leukemia of B-cell type not having achieved remission (principal); Z23 Encounter for immunization | CPT/HCPCS: 90471; 96372 ==

== ENCOUNTER 2021-07-02 03:03 | Outpatient (CLI) | payer BC, SELFPAY ==
[2021-07-02 16:01] LABS: HCT 41.4 % (36.0-46.0); HGB 13.6 g/dL (11.2-15.7); MCH 31.2 pg (27.0-33.0); MCHC 32.9 % (32.0-36.0); MCV 95 fL (80-95); MPV 10.1 fL (8.0-11.0); Platelet Count 195 10^3/uL (130-400); RBC 4.36 10^6/uL (3.93-5.22); RDW 12.3 % (11.7-14.6); RDW-SD 42.9 fL; WBC 5.97 10^3/uL (4.4-10.8)
[2021-07-02 17:39] LABS: Absolute Lymphocyte Count 2.21 10^3/uL (1.2-3.4); Absolute Monocyte Count 0.48 10^3/uL (0.1-0.8); Absolute Neutrophil Count 3.28 10^3/uL (1.2-6.7); Atypical Lymphocytes % 14
[2021-07-02 17:40] LABS: Diff Comment Manual Differential; RBC Morphology Normal
[2021-07-02 17:52] LABS: ALT 33 U/L (14-59); AST 42 U/L (15-37); Albumin 4.1 g/dL (3.4-5.0); Alkaline Phosphatase 60 U/L (46-116); Anion Gap 9.3 mmol/L (3-11); BUN 21 mg/dL (7-18); Bilirubin, Total 0.4 mg/dL (0.2-1.0); CO2 28.7 mmol/L (21.0-32.0); CREATININE 0.7 mg/dL (0.55-1.02); Chloride 103 mmol/L (98-107); Glucose 84 mg/dL (74-106); PHOSPHORUS 4.3 mg/dL (2.6-4.7); Sodium 141 mmol/L (136-145); Total Protein 6.5 g/dL (6.4-8.2); Uric Acid 5.2 mg/dL (2.6-6.0)
[2021-07-02 20:24] LABS: ALT 31 U/L (14-59); AST 43 U/L (15-37); Albumin 4.2 g/dL (3.4-5.0); Alkaline Phosphatase 65 U/L (46-116); Bilirubin, Direct 0.1 mg/dL (0.0-0.2); Bilirubin, Total 0.4 mg/dL (0.2-1.0); Total Protein 6.6 g/dL (6.4-8.2)
[2021-07-06 09:52] LABS: IgA 75 mg/dL (85-499); IgG 482 mg/dL (610-1,616); IgM 41 mg/dL (35-242)
== END 2021-07-02 03:04 | disposition home or self-care (01) ==
PROVIDERS: Internal Medicine Hematology; PCP Nurse Practitioner Family; Visit Provider Physician Assistant Medical
DX: C91.10 Chronic lymphocytic leukemia of B-cell type not having achieved remission (principal); D80.1 Nonfamilial hypogammaglobulinemia; R74.8 Abnormal levels of other serum enzymes
CPT/HCPCS: 36415; 80053; 80076; 82784; 84100; 84550; 85025

== ENCOUNTER → 2021-12-16 01:01 | Outpatient (CLI) | payer BC, SELFPAY ==
--- NOTE | 2021-12-16 07:30 | DI.MAMMO_ITS ---
Exam(s) MAMMO SCREENING EXAM: MAMMO SCREENING CLINICAL HISTORY: screening,Z12.39 TECHNIQUE: Mammograms were interpreted according to the usual protocol including computer analysis w [facility] CAD system, tomosynthesis and C-view imaging. COMPARISON: FINDINGS: The breasts are heterogeneously dense. No dominant mass or clumped microcalcification is identified in either breast. The current examination is compared with previous examinations including October 24 and there is been no gross interval change in appearance in comparison with the prior studies. IMPRESSION: No specific evidence of malignancy at this time. Routine screening examinations are suggested at yea rly intervals in this age group according to the ACS ACR guidelines. BI-RADS Category 1 - Negative Breast Density - Category C - Heterogeneously dense
== END ==
PROVIDERS: PCP Student in an Organized Health Care Education/Training Program; Visit Provider Student in an Organized Health Care Education/Training Program
DX: Z12.31 Encounter for screening mammogram for malignant neoplasm of breast (principal); R92.8 Other abnormal and inconclusive findings on diagnostic imaging of breast
CPT/HCPCS: 77063; 77067

== ENCOUNTER 2021-12-16 02:14 | Outpatient (CLI) | payer BC, SELFPAY ==
[2021-12-16 15:30] LABS: Creatine Kinase 255 U/L (26-192)
[2021-12-17 09:28] LABS: IgG 434 mg/dL (610-1,616)
== END 2021-12-16 02:15 | disposition home or self-care (01) ==
PROVIDERS: PCP Internal Medicine Hematology; Visit Provider Physician Assistant Medical
DX: D80.1 Nonfamilial hypogammaglobulinemia (principal); R74.8 Abnormal levels of other serum enzymes
CPT/HCPCS: 36415; 82550; 82784

== ENCOUNTER 2022-01-26 02:52 | Outpatient (CLI) | payer BC, SELFPAY ==
[2022-01-26 17:29] LABS: TSH (W/Ref FT4) 3.89 uIU/mL (0.36-3.74)
[2022-01-26 17:45] LABS: FREE T4 0.87 ng/dL (0.76-1.46)
[2022-02-01 10:24] LABS: IgG 571 mg/dL (610-1616)
== END 2022-01-26 02:53 | disposition home or self-care (01) ==
LOC: LBO 02:52
PROVIDERS: Internal Medicine Hematology; PCP Student in an Organized Health Care Education/Training Program; Visit Provider Student in an Organized Health Care Education/Training Program
DX: R79.89 Other specified abnormal findings of blood chemistry (principal); D80.1 Nonfamilial hypogammaglobulinemia; R94.6 Abnormal results of thyroid function studies
CPT/HCPCS: 36415; 82784; 84439; 84443

== ENCOUNTER 2022-03-16 03:48 | Outpatient (CLI) | payer BC, SELFPAY ==
[2022-03-17 10:15] LABS: IgG 594 mg/dL (610-1616)
== END 2022-03-16 03:49 | disposition home or self-care (01) ==
LOC: LBO 03:49
PROVIDERS: Internal Medicine Hematology; PCP Student in an Organized Health Care Education/Training Program; Visit Provider Student in an Organized Health Care Education/Training Program
DX: D80.1 Nonfamilial hypogammaglobulinemia (principal)
CPT/HCPCS: 36415; 82784

== ENCOUNTER 2022-04-27 09:29 | Outpatient (CLI) | payer BC, SELFPAY ==
[2022-04-27 16:39] LABS: Absolute Basophil Count 0.08 10^3/uL (0.0-0.2); Absolute Eosinophil Count 0.01 10^3/uL (0.0-0.7); Absolute Lymphocyte Count 1.21 10^3/uL (1.2-3.4); Absolute Monocyte Count 0.41 10^3/uL (0.1-0.8); Absolute Neutrophil Count 1.74 10^3/uL (1.2-6.7); Basophils % 2.3; Eosinophils % 0.3; HCT 42.4 % (36.0-46.0); HGB 14.1 g/dL (11.2-15.7); Lymphocytes % 35.1; MCH 31.5 pg (27.0-33.0); MCHC 33.3 % (32.0-36.0); MCV 95 fL (80-95); MPV 10.2 fL (8.0-11.0); Monocytes % 11.9; Neutrophils % 50.4; Platelet Count 172 10^3/uL (130-400); RBC 4.47 10^6/uL (3.93-5.22); RDW 12.3 % (11.7-14.6); WBC 3.45 10^3/uL (4.4-10.8)
[2022-04-27 17:01] LABS: ALT 28 U/L (14-59); AST 43 U/L (15-37); Albumin 4.3 g/dL (3.4-5.0); Alkaline Phosphatase 56 U/L (46-116); Anion Gap 8.1 mmol/L (3-11); BUN 28 mg/dL (7-18); Bilirubin, Total 0.8 mg/dL (0.2-1.0); CO2 28.9 mmol/L (21.0-32.0); CREATININE 0.7 mg/dL (0.55-1.02); Calcium 9.4 mg/dL (8.5-10.1); Chloride 103 mmol/L (98-107); Glucose 88 mg/dL (74-106); Potassium 3.8 mmol/L (3.5-5.1); Sodium 140 mmol/L (136-145)
[2022-04-27 17:27] LABS: LDH 257 U/L (81-234)
[2022-04-29 09:25] LABS: IgA 81 mg/dL (85-499); IgG 661 mg/dL (610-1616); IgM 41 mg/dL (35-242)
== END 2022-04-27 09:30 | disposition home or self-care (01) ==
LOC: LBO 09:30
PROVIDERS: PCP Student in an Organized Health Care Education/Training Program; Visit Provider Internal Medicine Hematology
DX: D80.1 Nonfamilial hypogammaglobulinemia (principal); C91.10 Chronic lymphocytic leukemia of B-cell type not having achieved remission
CPT/HCPCS: 36415; 80053; 82784; 83615; 85025

== ENCOUNTER 2022-06-08 03:08 | Outpatient (CLI) | payer BC, SELFPAY ==
[2022-06-08 16:58] LABS: Abs Immature Grans 0.01 10^3/uL (0.0-0.06); Absolute Basophil Count 0.08 10^3/uL (0.0-0.2); Absolute Eosinophil Count 0.02 10^3/uL (0.0-0.7); Absolute Lymphocyte Count 1.19 10^3/uL (1.2-3.4); Absolute Monocyte Count 0.39 10^3/uL (0.1-0.8); Eosinophils % 0.5; HCT 41.8 % (36.0-46.0); Immature Grans % 0.3; Lymphocytes % 29.8; MCH 31.7 pg (27.0-33.0); MCHC 33.5 % (32.0-36.0); MCV 95 fL (80-95); MPV 10.3 fL (8.0-11.0); Monocytes % 9.8; Neutrophils % 57.6; Platelet Count 186 10^3/uL (130-400); RBC 4.41 10^6/uL (3.93-5.22); RDW 12.2 % (11.7-14.6); RDW-SD 43.1 fL; WBC 3.99 10^3/uL (4.4-10.8)
[2022-06-08 18:24] LABS: ALT 25 U/L (14-59); AST 27 U/L (15-37); Albumin 4.3 g/dL (3.4-5.0); Alkaline Phosphatase 51 U/L (46-116); Anion Gap 8.6 mmol/L (3-11); BUN 29 mg/dL (7-18); Bilirubin, Total 0.7 mg/dL (0.2-1.0); CO2 28.4 mmol/L (21.0-32.0); CREATININE 0.7 mg/dL (0.55-1.02); Calcium 9.4 mg/dL (8.5-10.1); Chloride 103 mmol/L (98-107); Glucose 86 mg/dL (74-106); LDH 199 U/L (81-234); Sodium 140 mmol/L (136-145); Total Protein 6.7 g/dL (6.4-8.2)
[2022-06-10 09:40] LABS: IgA 78 mg/dL (85-499); IgG 657 mg/dL (610-1616); IgM 43 mg/dL (35-242)
== END 2022-06-08 03:09 | disposition home or self-care (01) ==
PROVIDERS: PCP Student in an Organized Health Care Education/Training Program; Visit Provider Internal Medicine Hematology
DX: D80.1 Nonfamilial hypogammaglobulinemia (principal); C91.10 Chronic lymphocytic leukemia of B-cell type not having achieved remission
CPT/HCPCS: 36415; 80053; 82784; 83615; 85025

== ENCOUNTER 2022-07-20 02:52 | Outpatient (CLI) | payer BC, SELFPAY ==
[2022-07-20 16:15] LABS: Abs Immature Grans 0.01 10^3/uL (0.0-0.06); Absolute Basophil Count 0.08 10^3/uL (0.0-0.2); Absolute Eosinophil Count 0.01 10^3/uL (0.0-0.7); Absolute Neutrophil Count 2.96 10^3/uL (1.2-6.7); Basophils % 1.7; Eosinophils % 0.2; HCT 42.9 % (36.0-46.0); HGB 14.4 g/dL (11.2-15.7); Immature Grans % 0.2; Lymphocytes % 25.8; MCH 31.8 pg (27.0-33.0); MCHC 33.6 % (32.0-36.0); MCV 95 fL (80-95); MPV 10.1 fL (8.0-11.0); Monocytes % 8.6; Neutrophils % 63.5; Platelet Count 170 10^3/uL (130-400); RBC 4.53 10^6/uL (3.93-5.22); RDW 12.2 % (11.7-14.6); RDW-SD 42.6 fL; WBC 4.66 10^3/uL (4.4-10.8)
[2022-07-20 17:23] LABS: ALT 31 U/L (14-59); AST 39 U/L (15-37); Albumin 4.5 g/dL (3.4-5.0); Alkaline Phosphatase 63 U/L (46-116); Anion Gap 8.7 mmol/L (3-11); BUN 34 mg/dL (7-18); Bilirubin, Total 0.8 mg/dL (0.2-1.0); CO2 26.3 mmol/L (21.0-32.0); CREATININE 0.8 mg/dL (0.55-1.02); Calcium 9.7 mg/dL (8.5-10.1); Chloride 103 mmol/L (98-107); Estimated GFR 88.05 (mL/min/1.73m2); Glucose 86 mg/dL (74-106); LDH 252 U/L (81-234); Potassium 3.9 mmol/L (3.5-5.1); Sodium 138 mmol/L (136-145); Total Protein 7.8 g/dL (6.4-8.2)
[2022-07-22 09:32] LABS: IgA 96 mg/dL (85-499); IgG 657 mg/dL (610-1616); IgM 50 mg/dL (35-242)
== END 2022-07-20 02:53 | disposition home or self-care (01) ==
LOC: LBO 02:53
PROVIDERS: PCP Student in an Organized Health Care Education/Training Program; Visit Provider Internal Medicine Hematology
DX: D80.1 Nonfamilial hypogammaglobulinemia (principal); C91.10 Chronic lymphocytic leukemia of B-cell type not having achieved remission
CPT/HCPCS: 36415; 80053; 82784; 83615; 85025

== ENCOUNTER 2022-07-27 02:56 | Outpatient (CLI) | payer BC, SELFPAY ==
[2022-07-27 15:06] LABS: Abs Immature Grans 0.01 10^3/uL (0.0-0.06); Absolute Basophil Count 0.09 10^3/uL (0.0-0.2); Absolute Eosinophil Count 0.04 10^3/uL (0.0-0.7); Absolute Lymphocyte Count 1.36 10^3/uL (1.2-3.4); Absolute Monocyte Count 0.42 10^3/uL (0.1-0.8); Absolute Neutrophil Count 2.25 10^3/uL (1.2-6.7); Basophils % 2.2; HCT 42.8 % (36.0-46.0); HGB 14.3 g/dL (11.2-15.7); Immature Grans % 0.2; Lymphocytes % 32.6; MCH 31.8 pg (27.0-33.0); MCHC 33.4 % (32.0-36.0); MCV 95 fL (80-95); MPV 10.2 fL (8.0-11.0); Monocytes % 10.1; Neutrophils % 53.9; Platelet Count 195 10^3/uL (130-400); RBC 4.49 10^6/uL (3.93-5.22); RDW 12.3 % (11.7-14.6); RDW-SD 43.7 fL; WBC 4.17 10^3/uL (4.4-10.8)
[2022-07-27 16:04] LABS: ALT 41 U/L (14-59); AST 41 U/L (15-37); Albumin 4.1 g/dL (3.4-5.0); Alkaline Phosphatase 64 U/L (46-116); Anion Gap 8.3 mmol/L (3-11); BUN 25 mg/dL (7-18); Bilirubin, Total 0.8 mg/dL (0.2-1.0); CO2 28.7 mmol/L (21.0-32.0); CREATININE 0.8 mg/dL (0.55-1.02); Calcium 9.3 mg/dL (8.5-10.1); Chloride 104 mmol/L (98-107); Estimated GFR 88.05 (mL/min/1.73m2); Glucose 91 mg/dL (74-106); LDH 210 U/L (81-234); Potassium 3.6 mmol/L (3.5-5.1); Sodium 141 mmol/L (136-145); Total Protein 7.5 g/dL (6.4-8.2)
[2022-07-27 16:27] LABS: Vitamin D 25 Total 47.5 ng/mL (30-100)
[2022-07-28 19:27] LABS: T3,Free 3.7 pg/mL (2.8-5.3)
[2022-07-29 12:38] LABS: IgA 87 mg/dL (85-499); IgG 920 mg/dL (610-1616); IgM 42 mg/dL (35-242)
== END 2022-07-27 02:57 | disposition home or self-care (01) ==
PROVIDERS: PCP Student in an Organized Health Care Education/Training Program; Visit Provider Internal Medicine Hematology
DX: C91.10 Chronic lymphocytic leukemia of B-cell type not having achieved remission (principal); R79.89 Other specified abnormal findings of blood chemistry
CPT/HCPCS: 36415; 80053; 82306; 82784; 83615; 84481; 85025

== ENCOUNTER 2022-09-01 02:45 | Outpatient (CLI) | payer BC, SELFPAY ==
[2022-09-01 18:12] LABS: Calculated LDL 87 mg/dL (<100); Cholesterol 213 mg/dL (<200); HDL Cholesterol 120 mg/dL (40-60); TSH (W/Ref FT4) 3.97 uIU/mL (0.36-3.74); Triglyceride 33 mg/dL (<150)
[2022-09-01 18:35] LABS: FREE T4 0.78 ng/dL (0.76-1.46)
== END 2022-09-01 02:46 | disposition home or self-care (01) ==
PROVIDERS: PCP Student in an Organized Health Care Education/Training Program; Visit Provider Student in an Organized Health Care Education/Training Program
DX: R94.6 Abnormal results of thyroid function studies (principal); R94.5 Abnormal results of liver function studies; C91.00 Acute lymphoblastic leukemia not having achieved remission
CPT/HCPCS: 36415; 80061; 84439; 84443

== ENCOUNTER 2022-09-16 01:44 | Outpatient (CLI) | payer BC, SELFPAY ==
--- NOTE | 2022-09-16 06:45 | DI.DEXA_ITS ---
Exam(s) XR DEXA BONE DENSITY W/WO ROSEMARIE EXAM: XR DEXA BONE DENSITY W/WO ROSEMARIE CLINICAL HISTORY: Evaluate bone density,screening for osteoporosis in postmenopausal woman, TECHNIQUE: Routine DEXA evaluation of the lumbar spine, hip, or forearm. COMPARISON: No exams were available for comparison FINDINGS: Performed on a Hologic unit. Lateral image: No compression fracture evident. Lumbar Spine total T-score: -2.1 Hip total T-score:-1.3 Independent reading at the level of the femoral neck yields T-score of -1.8 Forearm total T-score: -1.1 IMPRESSION: Bone mineral density measures in the osteopenia range. Fracture risk is moderate. Note: Any spine fracture indicates 5x risk for subsequent spine fracture and 2x risk for subsequent h ip fracture. World Health Organization criteria for BMD interpretation classify patients: Normal...... T- Score at or above -1.0 Osteopenic... T- Score between -1.0 and -2.5 Osteoporosis... T-Score at or below -2.5
== END 2022-09-16 02:04 ==
LOC: DI 01:44
PROVIDERS: PCP Student in an Organized Health Care Education/Training Program; Visit Provider Student in an Organized Health Care Education/Training Program
DX: M85.88 Other specified disorders of bone density and structure, other site (principal); Z78.0 Asymptomatic menopausal state
CPT/HCPCS: 77080

== ENCOUNTER 2022-09-22 04:23 | Outpatient (CLI) | payer BC, SELFPAY ==
[2022-09-24 09:34] LABS: IgG 554 mg/dL (610-1616)
== END 2022-09-22 04:24 | disposition home or self-care (01) ==
PROVIDERS: PCP Student in an Organized Health Care Education/Training Program; Visit Provider Internal Medicine Hematology
DX: C91.10 Chronic lymphocytic leukemia of B-cell type not having achieved remission (principal); D80.1 Nonfamilial hypogammaglobulinemia; R79.89 Other specified abnormal findings of blood chemistry
CPT/HCPCS: 36415; 82784

== ENCOUNTER 2022-11-26 14:14 | Outpatient (CLI) | payer BC, SELFPAY ==
[2022-11-26 11:41] LABS: Abs Immature Grans 0.01 10^3/uL (0.0-0.06); Absolute Basophil Count 0.07 10^3/uL (0.0-0.2); Absolute Eosinophil Count 0.01 10^3/uL (0.0-0.7); Absolute Lymphocyte Count 1.45 10^3/uL (1.2-3.4); Absolute Monocyte Count 0.62 10^3/uL (0.1-0.8); Absolute Neutrophil Count 3.78 10^3/uL (1.2-6.7); Basophils % 1.2; Eosinophils % 0.2; HCT 44.2 % (36.0-46.0); HGB 15.2 g/dL (11.2-15.7); Immature Grans % 0.2; Lymphocytes % 24.4; MCH 31.6 pg (27.0-33.0); MCHC 34.4 % (32.0-36.0); MCV 92 fL (80-95); MPV 10.1 fL (8.0-11.0); Monocytes % 10.4; Neutrophils % 63.6; Platelet Count 191 10^3/uL (130-400); RBC 4.81 10^6/uL (3.93-5.22); RDW 12.3 % (11.7-14.6); RDW-SD 42.2 fL; WBC 5.94 10^3/uL (4.4-10.8)
== END 2022-11-26 14:15 | disposition home or self-care (01) ==
LOC: LBO 14:15
PROVIDERS: PCP Student in an Organized Health Care Education/Training Program; Visit Provider Family Medicine
DX: I88.8 Other nonspecific lymphadenitis (principal)
CPT/HCPCS: 36415; 85025

== ENCOUNTER 2022-12-03 03:28 | Outpatient (CLI) | payer BC, SELFPAY ==
[2022-12-06 09:44] LABS: IgG 482 mg/dL (610-1616)
== END 2022-12-03 03:29 | disposition home or self-care (01) ==
LOC: LBO 03:29
PROVIDERS: PCP Student in an Organized Health Care Education/Training Program; Visit Provider Student in an Organized Health Care Education/Training Program
DX: C91.10 Chronic lymphocytic leukemia of B-cell type not having achieved remission (principal); D80.1 Nonfamilial hypogammaglobulinemia; R79.89 Other specified abnormal findings of blood chemistry
CPT/HCPCS: 36415; 82784

== ENCOUNTER → 2022-12-08 02:14 | Outpatient (CLI) | payer BC, SELFPAY ==
--- NOTE | 2022-12-08 15:00 | DI.US_ITS ---
APPROVED REPORT EXAM: Comprehensive 2D, Doppler, and color-flow Echocardiogram Patient Location: Out-Patient [employer] Developer: Jing Ochoa RDCS (AE) Indications: Evaluate heart function, Baseline EF, chemo induced cardiomyopathy Other Information Study Quality: Adequate Conclusion Normal left ventricular wall thickness and chamber size. Ejection fraction is 55%. Wall motion is n ormal Normal right ventricular size and systolic function Both atria are normal in size There is no structural or hemodynamically significant valvular disease Wall motion Left Ventricle The left ventricle is normal size. The left ventricular systolic function is normal. The left ventric ular ejection fraction is within the normal range. There is normal left ventricular wall thickness. T here is normal LV segmental wall motion. There is no ventricular septal defect visualized. LVEF is 55 %. Right Ventricle The right ventricle is normal size. The right ventricular systolic function is normal. Atria The left atrium size is normal. The right atrium size is normal. The interatrial septum is intact wit h no evidence for an atrial septal defect. Aortic Valve The aortic valve is normal in structure. Aortic valve is trileaflet. There is no aortic valvular sten osis. No aortic regurgitation is present. Mitral Valve The mitral valve is normal in structure. No evidence of mitral valve stenosis. Trace mitral regurgita tion. Tricuspid Valve The tricuspid valve is normal in structure. There is no tricuspid valve stenosis. Trace tricuspid reg urgitation. Pulmonic Valve The pulmonary valve is normal in structure. There is no pulmonic valvular stenosis. There is no pulmo sherrie valvular regurgitation. Great Vessels The aortic root is normal in size. The ascending aorta is normal in size. Aortic arch is normal in ca liber. IVC is normal in size and collapses >50% with inspiration. Pericardium There is no pericardial effusion. 2D Dimensions IVSD d PLAX 0.76 cm F: 0.6-1.0 Ao Root d 2.32 cm F: 2.7 - 3.3 LVPW d PLAX 0.85 cm F: 0.6 - 1.0 Ao Asc Diam d 2.84 cm F: 2.3 - 3.1 LVID d PLAX 4.59 cm F: 3.8 - 5.2 LVDs 3.13 cm F: 2.2 - 3.5 LV EF Teichholz 60.0 % FS 31.89 % LV EDV (Teich) 96.9 mL LV ESV (Teich) 38.7 mL M-Mode TAPSE 2.82 cm (M/F) >1.7 Auto EF LV EDV A4C 100.5 mL LV EDV A2C 129.6 mL LV EDV BP 114.2 mL LV ESV A4C 45.2 mL LV ESV A2C 57.3 mL LV ESV BP 51.2 mL LVEF(%) A4C 55.0 % LVEF(%) A2C 55.8 % LVEF(%) BP 55.1 % LV SV A4C 55.3 ml LV SV A2C 72.3 ml LV SV BP 62.9 ml LV CO A4C 3.0 L/min LV CO A2C 4.0 L/min LV CO BP 3.5 L/min HR A4C 53.56 BPM HR A2C 55.91 BPM LV EDV Index (BP) LA Volume LA Length A4C 4.7 cm LA Length A2C 4.9 cm LA Area A4C s 16.91 cm2 LA Area A2C s 15.26 cm2 LA Vol A4C A-L 51.28 mL LA Vol A2C A-L 40.06 mL LA Vol Biplane A-L 46.3 mL LA Vol/BSA A4C A-L LA Vol/BSA A2C A-L LA Vol/BSA BP A-L 29.7 mL/m2 LA Vol A4C MOD 47.3 mL LA Vol A2C MOD 38.4 mL LA Vol BP MOD 43.3 mL RA Volume RA Area A4C 18.5 cm2 RA ESV A4C (A-L) 55.3mL RA Vol/BSA A4C A-L RA Length A4C 5.2 cm RA ESV A4C (MOD) 51.2mL LV Diastology MV E' medial 0.092 (>0.07 m/s) MV E Vmax 0.64 (0.4-1.3 m/s) MV E/E' MED 6.96 (<14) MV A Vmax 0.65 (0.4-1.3 m/s) MV E' lateral 0.111 (>0.1 m/s) E/A Ratio 1.0 MV E/E' LAT 5.78 (<14) MV E' Average 0.101 m/s MV E/E'(average) 6.32 Aortic Valve AoV Vmax 1.79 m/s LVOT Vmax 1.35 m/s AoV Peak Grad 12.8 mmHg LVOT Peak Grad 7.3 mmHg AoV Area (Vmax) 2.06 cm2 LVOT VTI 0.295 m AoV VTI 0.401 m LVOT Mean Grad 3.9 mmHg AoV Mean Lavon. 1.27 m/s LVOT SV 80.52 mL AoV Mean Grad 7.3 mmHg LVOT Diam s 1.85 cm AoV Area (VTI) 2.01 cm2 Velocity Ratio 0.75 Mitral Valve MV DT 230 (160-240 msec) MV Vmax TIPS 0.64 m/s MV Mean Grad 0.8 (<2mmHg) MV VTI 0.259 m Pulmonary Valve PV Vmax 1.54 (0.5-1.5 m/s) RVOT Vmax 0.79 m/s PV Peak Grad 9.5 mmHg RVOT Peak Gr. 2.5 mmHg PV Mean Lavon 1.09 m/s RVOT VTI 0.192 m PV Mean Grad 5.3 mmHg RVOT Mean Gr. 1.2 mmHg Tricuspid Valve RA Pressure 3.00 mmHg TV S' 0.14 m/s
== END ==
PROVIDERS: PCP Student in an Organized Health Care Education/Training Program; Visit Provider Student in an Organized Health Care Education/Training Program
DX: C91.10 Chronic lymphocytic leukemia of B-cell type not having achieved remission (principal); D80.1 Nonfamilial hypogammaglobulinemia; I42.7 Cardiomyopathy due to drug and external agent; R79.89 Other specified abnormal findings of blood chemistry; R89.2 Abnormal level of other drugs, medicaments and biological substances in specimens from other organs, systems and tissues; T45.1X5A Adverse effect of antineoplastic and immunosuppressive drugs, initial encounter
CPT/HCPCS: 93306

== ENCOUNTER → 2023-01-06 01:08 | Outpatient (CLI) | payer BC, SELFPAY ==
--- NOTE | 2023-01-06 09:00 | DI.MAMMO_ITS ---
Exam(s) MAMMO SCREENING EXAM: MAMMO SCREENING CLINICAL HISTORY: screening,Z12.39 TECHNIQUE: Mammograms were interpreted according to the usual protocol including computer analysis w [facility] CAD system, tomosynthesis and C-view imaging. COMPARISON: 2014 through 2021 FINDINGS: The breasts are composed of heterogeneously dense fibroglandular densities, Breast Density category C . No suspicious masses or suspicious microcalcifications are seen. No skin thickening or abnormal axillary lymph nodes are seen. There has been no significant change from prior exams. IMPRESSION: BI-RADS Category 1, Negative mammogram. Yearly screening mammography is recommended. Breast Density Category C, heterogeneously Dense. The mammogram demonstrates the patient's breast tissue is dense. Dense breast tissue is very common a nd is not abnormal but dense breast tissue can make it harder to find cancer on a mammogram. Also, de nse breast tissue may increase breast cancer risk. This information about the result of the mammogram report was provided to the patient to raise their awareness. Use this report when you speak with the patient about their risks for breast cancer, which includes their family history. At that time, you may recommend additional screening tests (Ultrasound or MRI) as they might be useful based on their r isk. A negative radiographic report should not delay biopsy if a dominant or clinically suspicious mass is present. Up to ten percent of cancers are not identified on mammography. A negative report may reinforce clinical impression. Adenosis and dense breasts may obscure an underlying neoplasm. False positive reports average 6 to 10%.
== END ==
PROVIDERS: PCP Student in an Organized Health Care Education/Training Program; Visit Provider Student in an Organized Health Care Education/Training Program
DX: Z12.31 Encounter for screening mammogram for malignant neoplasm of breast (principal)
CPT/HCPCS: 77063; 77067

== ENCOUNTER 2023-11-10 02:33 | Outpatient (CLI) | payer BC, SELFPAY ==
--- NOTE | 2023-11-10 08:00 | DI.RAD_ITS ---
Exam(s) XR HIP PELVIS ADULT BL EXAM: XR HIP PELVIS ADULT BL CLINICAL HISTORY: eval arthritis,? [facility] PATHOLOGY,BILAT BUTTOCK PAIN,ARTHRITIS PELVIS,m16.10. TECHNIQUE: 2D digital imaging was performed. COMPARISON: CR XR DEXA BONE DENSITY W/WO RO[place]ARIE from 09/16/2022 FINDINGS: Four views. No evidence of pelvic nor hip fracture. No hip joint space narrowing. No evidence of avascular necr osis. Additional lateral views of both hips reveal no additional findings. No joint space narrowing . No osteophytes. Bone density normal. Sacroiliac joints appear unremarkable. No osseous lesions. IMPRESSION: No significant osseous findings in the pelvis and hips. DATA REPOSITORY: RADIATION DOSE DELIVERED:
--- NOTE | 2023-11-10 08:00 | DI.RAD_ITS ---
Exam(s) XR SACROILIAC JOINTS EXAM: XR SACROILIAC JOINTS CLINICAL HISTORY: eval SI joint,? ARTHRITIS,BILAT BUTTOCK PAIN,m16.10. TECHNIQUE: 2D digital imaging was performed. COMPARISON: CR XR HIP PELVIS ADULT BL from 11/10/2023 FINDINGS: Two views. Sacroiliac joints appear age-appropriate. No radiographic evidence of sacroiliitis. No ankylosis. Visualized sacrum appears unremarkable. Visualized lower lumbar spine appears unremarkable. IMPRESSION: No significant radiographic findings in the sacroiliac joints. DATA REPOSITORY: RADIATION DOSE DELIVERED:
== END 2023-11-10 02:53 ==
LOC: DI 02:33
PROVIDERS: PCP Student in an Organized Health Care Education/Training Program; Visit Provider Student in an Organized Health Care Education/Training Program
DX: M16.11 Unilateral primary osteoarthritis, right hip; M47.818 Spondylosis without myelopathy or radiculopathy, sacral and sacrococcygeal region; Z87.39 Personal history of other diseases of the musculoskeletal system and connective tissue
CPT/HCPCS: 73521; 72202

== ENCOUNTER 2024-02-09 03:29 | Outpatient (CLI) | payer BC, SELFPAY ==
[2024-02-09 16:32] LABS: TSH (W/Ref FT4) 2.28 uIU/mL (0.36-3.74)
== END 2024-02-09 03:30 | disposition home or self-care (01) ==
PROVIDERS: PCP Student in an Organized Health Care Education/Training Program; Visit Provider Student in an Organized Health Care Education/Training Program
DX: D89.9 Disorder involving the immune mechanism, unspecified (principal); C91.10 Chronic lymphocytic leukemia of B-cell type not having achieved remission
CPT/HCPCS: 36415; 84443

== ENCOUNTER 2024-03-29 14:53 | Outpatient (REF) | payer OTHER, SELFPAY | END 2024-03-29 14:54 | disposition home or self-care (01) | LOC: LBN 14:53 | PROVIDERS: PCP Nurse Practitioner; Visit Provider Family Medicine | DX: L08.9 Local infection of the skin and subcutaneous tissue, unspecified (principal) | CPT/HCPCS: 87070 ==

== ENCOUNTER 2024-10-04 02:02 | Outpatient (CLI) | payer OTHER, SELFPAY ==
--- NOTE | 2024-10-04 12:50 | DI.MAMMO_ITS ---
Exam(s) MAMMO SCREENING EXAM: MAMMO SCREENING CLINICAL HISTORY: screening, Z12.39. TECHNIQUE: Bilateral full field digital CC and MLO mammographic images were obtained with 3D tomosynthesis and utilizing computer aided detection (CAD). COMPARISON: Prior mammograms were reviewed. FINDINGS: There has been no significant change in the appearance and distribution of the fibroglandular tissue. There are no new spiculated masses nor malignant appearing microcalcification groups. There is no significant architectural distortion nor skin thickening-retraction. IMPRESSION: No radiographic evidence of malignancy. BI-RADS Category 1 - Negative Breast Density - Category C - The breast are heterogeneously dense, which may obscure small masses. Breast density Category C or D implies that the patient has dense breast tissue. Dense breast tissue can make it harder to find cancer on a mammogram. Dense breast tissue is also associated with an increased risk of breast cancer. This information about the result of the mammogram report was provided to the patient to raise their awareness. Use this report when you speak with the patient about their risks for breast cancer, which includes their family history. At that time, you may recommend additional screening tests (Ultrasound or MRI) as these tests may add significant information. A negative radiographic report should not delay biopsy if a dominant or clinically suspicious mass is present. Up to ten percent of cancers are not identified on mammography. A negative report may reinforce clinical impression. Adenosis and dense breasts may obscure an underlying neoplasm. False positive reports average 6 to 10%. Patient will receive a letter notifying them of these results.
== END 2024-10-04 02:22 ==
LOC: DI 02:02
PROVIDERS: PCP Nurse Practitioner; Visit Provider Family Medicine
DX: Z12.31 Encounter for screening mammogram for malignant neoplasm of breast (principal); R92.333 Mammographic heterogeneous density, bilateral breasts
CPT/HCPCS: 77063; 77067

== ENCOUNTER 2024-10-04 13:13 | Outpatient (REF) | payer OTHER, SELFPAY | END 2024-10-04 13:14 | disposition home or self-care (01) | LOC: LBN 13:13 | PROVIDERS: PCP Nurse Practitioner; Visit Provider Family Medicine | DX: L08.9 Local infection of the skin and subcutaneous tissue, unspecified (principal); T14.8XXA Other injury of unspecified body region, initial encounter | CPT/HCPCS: 87077; 87070; 87186; 87205 ==